=== PATIENT | male | born 1990 | race Two or more races ===

== ENCOUNTER 2020-11-07 07:07 | Emergency (ER) | payer MEDICAID ==
[2020-11-07] MEDS ORDERED: ONDANSETRON HCL INJ/PF 4 MG/2 ML SDV IV ONE ×2 (07:58→09:23)
[2020-11-07] MEDS ORDERED: MORPHINE SULFATE 10 MG/ML INJ IV ONE ×2 (07:58→09:23)
--- NOTE | 2020-11-07 08:49 | RADIOLOGY REPORT (SQ) ---
EXAM DESCRIPTION: CHEST SINGLE VIEW IMAGES COMPLETED DATE/TIME: 11/07/2020 8:07 am REASON FOR STUDY: renal failure hemodialysis/ COMPARISON: None. EXAM PARAMETERS: NUMBER OF VIEWS: One view. TECHNIQUE: Single frontal radiographic view of the chest acquired. RADIATION DOSE: NA LIMITATIONS: None. FINDINGS: LUNGS AND PLEURA: No opacities, masses or pneumothorax. No pleural effusion. MEDIASTINUM AND HILAR STRUCTURES: No masses. Contour normal. HEART AND VASCULAR STRUCTURES: Heart normal in size. Normal vasculature. BONES: No acute findings. HARDWARE: Left subclavian stent. OTHER: No other significant finding. IMPRESSION: No evidence of acute cardiopulmonary abnormality. TECHNICAL DOCUMENTATION: JOB ID: [id number] 2010 [employer]- All Rights Reserved Reading location - IP/workstation name: [email or web address]
[2020-11-07 08:56] LABS: ABSOLUTE BASOPHILS # (AUTO) 0.2 10^3/uL (0.0-0.2); ABSOLUTE EOSINOPHILS # (AUTO) 0.5 10^3/uL (0.0-0.6); ABSOLUTE LYMPHOCYTES (AUTO) 1.9 10^3/uL (0.5-4.7); ABSOLUTE MONOCYTES (AUTO) 1.3 10^3/uL (0.1-1.4); ABSOLUTE NEUT (AUTO) 10.8 10^3/uL (1.7-8.2); BASOPHILS % (AUTO) 1.2 % (0-2); EOSINOPHILS % (AUTO) 3.6 % (0-6); HEMATOCRIT 39.8 % (37.9-51.0); HEMOGLOBIN 13.2 g/dL (13.5-17.0); LYMPHOCYTES % (AUTO) 12.6 % (13-45); MEAN CORPUSCULAR HEMOGLOBIN 30.8 pg (27.0-33.4); MEAN CORPUSCULAR HGB CONC 33.1 g/dL (32.0-36.0); MEAN CORPUSCULAR VOLUME 93 fl (80-97); MONOCYTES % (AUTO) 9.2 % (3-13); PLATELET COUNT 261 10^3/uL (150-450); RED BLOOD COUNT 4.27 10^6/uL (4.35-5.55); RED CELL DISTRIBUTION WIDTH 13.8 % (11.5-14.0); SEGMENTED NEUTROPHILS % (AUTO) 73.4 % (42-78); TOTAL CELLS COUNTED % (AUTO) 100 %; WHITE BLOOD COUNT 14.7 10^3/uL (4.0-10.5)
[2020-11-07 09:01] LABS: INTERNATIONAL RATION (INR) 0.99; PROTHROMBIN TIME 13.3 SEC (11.4-15.4)
[2020-11-07 09:03] LABS: ALBUMIN 4.7 g/dL (3.5-5.0); ALKALINE PHOSPHATASE 121 U/L (38-126); ASPARTATE AMINO TRANSFERASE 17 U/L (17-59); BILIRUBIN,DIRECT 0.6 mg/dL (0.0-0.4); BILIRUBIN,TOTAL 0.7 mg/dL (0.2-1.3); BLOOD UREA NITROGEN 49 mg/dL (7-20); CALCIUM 8.2 mg/dL (8.4-10.2); CARBON DIOXIDE 23 mmol/L (22-30); CHLORIDE 95 mmol/L (98-107); GLUCOSE 191 mg/dL (75-110); POTASSIUM 5.8 mmol/L (3.6-5.0); TOTAL PROTEIN 8.3 g/dL (6.3-8.2)
[2020-11-07 09:15] LABS: ANION GAP 20 (5-19)
--- NOTE | 2020-11-07 11:13 | RADIOLOGY REPORT (SQ) ---
EXAM DESCRIPTION: ARTERIAL UPPER EXTREM UNILAT IMAGES COMPLETED DATE/TIME: 11/07/2020 10:58 am REASON FOR STUDY: endo stent/graft left.11/02/20. Neckswelling/pain COMPARISON: AP view of the chest from 11/07/2020. TECHNIQUE: Dynamic and static grayscale, color Doppler and spectral Doppler images of the left upper extremity were obtained. LIMITATIONS: None. FINDINGS: Status post creation of a radiobasilic AV fistula below the antecubital fossa and stenting of the left subclavian vein. The arterial anastomosis and the imaged arterial vasculature of the le ft upper extremity, including the radial, ulnar, precaval, axillary, proximal and distal subclavian a nd common carotid arteries, are patent. There is no evidence of a high-grade stenosis. IMPRESSION: Patent radiobasilic AV fistula. There is no abnormality of the arterial vasculature of the left upper extremity. TECHNICAL DOCUMENTATION: JOB ID: [id number] 2010 [employer]- All Rights Reserved Reading location - IP/workstation name: [email or web address]
[2020-11-07] MEDS ORDERED: SODIUM POLYSTYRENE SULFONATE 15 GM/60 ML PO ONE (11:19)
--- NOTE | 2020-11-07 13:18 | ER Document Report ---
Entered by SHREE YUOSIF SCRIBE 11/07/20 0746 Acting as scribe for:JULIAN HARE MD ED General - General Chief Complaint: Neck Swelling Stated Complaint: SHOULDER PAIN Primary Care Provider: NANCY FERNANDO NP [NURSE PRACTITIONER] - Follow up as needed Information source: Patient Notes: This 30 year old male patient presents to the emergency department today with complaints of left neck pain. Patient reports an angioplasty, endovascular stent graft x5 days ago (11/02) at [facility]. Patient reports hemodialysis, was last dialyzed x2 days ago, and is due for dialysis tomorrow. Patient states this morning he noticed swelling and pain to his left neck that traveled to his shoulder. Contacted the Physician in [place] who conducted the procedure on 11/02, who reports 100% opening of the left subclavian vein and maximum collateral flow after angioplasty and stent. He reports no complications, with patent subclavian vein, other than more effort sedating the patient, and states swelling and pain is normal after. - Related Data Allergies/Adverse Reactions: No Known Allergies Allergy (Unverified 11/07/20 07:34) Past Medical History - General Information source: Patient - Social History Smoking Status: Never Smoker Cigarette use (# per day): No Frequency of alcohol use: None Drug Abuse: None Family History: Reviewed & Not Pertinent Patient has homicidal ideation: No - Past Medical History Cardiac Medical History: Reports: Hx Hypertension Endocrine Medical History: Reports: Hx Diabetes Mellitus Type 1 Renal/ Medical History: Reports: Hx Hemodialysis Review of Systems - Review of Systems Constitutional: No symptoms reported EENT: No symptoms reported Cardiovascular: No symptoms reported Respiratory: No symptoms reported Gastrointestinal: No symptoms reported Genitourinary: No symptoms reported Male Genitourinary: No symptoms reported Musculoskeletal: See HPI, Neck pain - L Skin: No symptoms reported Hematologic/Lymphatic: No symptoms reported Neurological/Psychological: No symptoms reported -: Yes All other systems reviewed and negative Physical Exam - Vital signs Vitals: Temp Pulse Resp BP Pulse Ox 97.5 F 93 14 147/87 H 98 11/07/20 07:10 11/07/20 07:10 11/07/20 07:10 11/07/20 07:10 11/07/20 07:10 - General General appearance: Alert - HEENT Head: Normocephalic, Atraumatic Eyes: Normal Pupils: PERRL Notes: Soft tissue swelling to the left supraclavicular area. No pulsatile masses. No open wounds or erythema of the skin. - Respiratory Respiratory status: No respiratory distress Chest status: Nontender Breath sounds: Normal Chest palpation: Normal - Cardiovascular Rhythm: Regular Heart sounds: Normal auscultation Murmur: No - Abdominal Inspection: Normal Distension: No distension Bowel sounds: Normal Tenderness: Nontender - Extremities General lower extremity: Normal inspection, Normal ROM. No: Edema Notes: AV fistula to the left forearm. Site appears clean. - Neurological Neuro grossly intact: Yes Cognition: Normal Orientation: AAOx4 [place] Coma Scale Eye Opening: Spontaneous Manisha Coma Scale Verbal: Oriented Manisha Coma Scale Motor: Obeys Commands Manisha Coma Scale Total: 15 Speech: Normal Sensory: Normal - Psychological Associated symptoms: Normal affect, Normal mood - Skin Skin Temperature: Warm Skin Moisture: Dry Skin Color: Normal Course - Re-evaluation Re-evalutation: 11/07/20 11:40 Improvement in pain in left supraclavicular area of swelling status post IV morphine. Case discussed with the doctor at the [facility] [place] and on 11 02 patient had a left forearm graft angioplasty and stent placement patient had a totally occluded left subclavian vein graft and was able to have an angioplasty and patent based on her procedure placing the stent patient tolerated procedure well accepted patient did require significant amount of sedative medications for moderate sedation in order to do the procedure. Patient has done well up until this a.m. stating that the pain nor the swelling was in any way this level until this morning. Discussed this whole process with the attending who did the procedure on 11 02 and he stated that he is not surprised that sometimes there is swelling and pain patient had quite a bit of collateral vein flow around the obstruction that he has had for more than a year. And oftentimes the collateral flow will discontinue as the patency of the graft is now open and often these collaterals will clot off. Patient has had a arterial study where they looked also with the veins patient does have a patent left subclavian vein at this time. Patient's AV fistula also is patent and operable for dialysis. And patient's arterial studies show that there is no arterial blockage either. It has been recommended by the vascular care physician that patient can be placed on pain medication for about 1 week which should be adequate to control pain and patient should follow-up with the [facility] dialysis which she is due for dialysis tomorrow. - Vital Signs Vital signs: Temp Pulse Resp BP Pulse Ox 97.5 F 93 15 166/101 H 100 11/07/20 07:10 11/07/20 07:10 11/07/20 12:01 11/07/20 12:01 11/07/20 12:01 11/07/20 11:44 Signs shows systolic diastolic hypertension 166/105. - Laboratory Results Result Diagrams: 11/07/20 08:07 11/07/20 08:07 Laboratory Results Interpreted: 11/07/20 11/07/20 08:07 08:07 WBC 14.7 H RBC 4.27 L Hgb 13.2 L Lymph % (Auto) 12.6 L Absolute Neuts (auto) 10.8 H Potassium 5.8 H Chloride 95 L Anion Gap 20 H BUN 49 H Creatinine 10.37 H Est GFR ( Amer) 7 L Est GFR (MDRD) Non-Af 6 L Glucose 191 H Calcium 8.2 L Direct Bilirubin 0.6 H Total Protein 8.3 H Patient is laboratories show a potassium of 5.8 mildly elevated glucose of 191 and glucose and a white blood cell count of 14.7. The white blood cell count was discussed with the endovascular DrMitesh Who performed the Endo procedure procedure on patient at [place]. At this time we do not believe patient has an infectious process chest x-ray looks clear without any infiltrate no pneumothorax no acute process. Critical Laboratory Results Reviewed: Yes Attending or Supervising Physician who Reviewed Labs: JULIAN HARE - Chronic renal failure laboratories. - Radiology Results Radiology Results Interpreted: 11/07/20 12:17 Chest X-Ray 11/07/20 07:49 IMPRESSION: No evidence of acute cardiopulmonary abnormality. Upper Extremity Ultrasound 11/07/20 08:35 IMPRESSION: Patent radiobasilic AV fistula. There is no abnormality of the a rterial vasculature of the left upper extremity. Chest x-ray no acute process right upper extremity shows normal vasculature no obstruction. Patient's subclavian vein is patent. Critical Radiology Results Reviewed: No Critical Results Discharge - Discharge Clinical Impression: Soft tissue swelling left neck, Recent angioplasty/stent left arm Condition: Stable Disposition: HOME, SELF-CARE Prescriptions: Hydrocodone/Acetaminophen [[place] 10-325 mg Tablet] 1 tab PO TID PRN #10 tablet PRN Reason: prn severe pain Referrals: NANCY FERNANDO, TECHNICAL ARTIST [NURSE PRACTITIONER] - Follow up as needed I personally performed the services described in the documentation, reviewed and edited the documentation which was dictated to the scribe in my presence, and it accurately records my words and actions.
[2020-11-07 13:30] VITALS: BP 174/108
== END 2020-11-07 13:29 | disposition home or self-care (01) ==
LOC: ER 07:07
DX: R22.1 Localized swelling, mass and lump, neck (principal); M54.2 Cervicalgia; I10 Essential (primary) hypertension; E10.9 Type 1 diabetes mellitus without complications; Z99.2 Dependence on renal dialysis; Z95.820 Peripheral vascular angioplasty status with implants and grafts
CPT/HCPCS: 96376; 99285; 96374; 96375; 36415; 85025; 85610; 80053; 93931; 71045; J2270; J2405